=== PATIENT | male | born 1950 | race Caucasian/White ===

== ENCOUNTER → 2017-08-05 | Day surgery (SDC) | payer MEDICARE ==
[~2017-08-05] MED LIST: BUPIVACAINE HCL PF 0.75% 30 ML VIAL ONE; LACTATED RINGER'S 1000 ML INJ 1,000 ML ONE; LIDOCAINE 1.5%/EPINEPHrine 1:200,000 PF SOLN 30 ML AMP ONE; MIDAZOLAM HCL 5 MG/ML VIAL (1 ML) ONE; ONDANSETRON HCL 4 MG/2 ML VIAL IV PUSH ONE; PROPOFOL 200 MG/20 ML AMP IV ONE; ceFAZolin 2 GM PREMIX 50 ML ONE
--- NOTE | 2017-08-05 10:06 | MP ---
cc: ROSANNA OLIVAS DATE OF SURGERY: 08/04/2017 PREOPERATIVE DIAGNOSIS Left shoulder rotator cuff tear. Left shoulder impingement syndrome. Left shoulder labral tear with chondromalacia. POSTOPERATIVE DIAGNOSIS Left shoulder rotator cuff tear. Left shoulder impingement syndrome. Left shoulder labral tear with chondromalacia. PROCEDURE Left shoulder arthroscopic rotator cuff repair. Left shoulder arthroscopic subacromial decompression. Left shoulder arthroscopic extensive debridement of labral tear with chondroplasty. SURGEON Dr. Rosanna Olivas. MEDICAL MASSAGE THERAPIST Rosanna Beverly PA-C. ANESTHESIA General with interscalene block. ESTIMATED BLOOD LOSS Less than 10 cc. COMPLICATIONS None. IMPLANTS USED Arthrex. JUSTIFICATION This patient is a 66-year-old male who injured his left shoulder. He has had persistence of pain in regards to his condition with failure of conservative treatment. Clinical exam as well as MRI confirmed the above-named findings. The patient was counseled as to the risks, benefits and alternatives of the above-named proposed surgical procedure. He did wish to proceed with surgery. PROCEDURE IN DETAIL Written consent was obtained. The patient was identified by name. Interscalene block anesthesia was administered to the left upper extremity by the anesthesiologist. The patient was taken to the operating room and general anesthesia was administered as well as 2 grams of IV Ancef. The patient was carefully turned to a right lateral decubitus position. A lateral arm roll was placed. All bony prominences and pressure points were well-padded. An arthroscopic arm leo was gently applied to the left upper extremity with 10 pounds of traction placed. The left shoulder was prepped and draped using isopropyl alcohol, Hibiclens solution and DuraPrep solution. After a timeout was performed, a standard posterior and anterior glenohumeral arthroscopic portal was established. The glenohumeral joint revealed evidence of extensive labral tearing along the anterior, superior and posterior portions. An arthroscopic shaver was introduced from the anterior portal. Extensive debridement of the labrum was performed to include the anterior 3 o'clock position up to the superior 12 o'clock position and back down the posterior 9 o'clock position. There was evidence of chondromalacia involving the glenohumeral joint and an Arthrex shaver was used to perform a chondroplasty in this region. There was evidence of a high-grade tear of the supraspinatus portion of the rotator cuff tendon which was also debrided. Attention was turned to the subacromial space. There was evidence of impingement with bursitis. An arthroscopic shaver was introduced from the lateral portal. A subacromial decompression was performed. The shaver was used to perform an extensive bursectomy. An arthroscopic bur was used to perform an acromioplasty and the cautery device was used to release the coracoacromial ligament. There was evidence of a high-grade full-thickness tear of the supraspinatus portion of the rotator cuff tendon which was elevated. A bur was used to decorticate the greater tuberosity in preparation for rotator cuff tendon repair. An Arthrex Scorpion device was used to shuttle #2 FiberTape suture in a horizontal mattress pattern as well as #2 FiberLink suture through the torn tendon. The sutures were then placed through the eyelet of an Arthrex 4.75 mm Bio-SwiveLock anchor. The sutures were tensioned and the anchor was inserted in the greater tuberosity. This gave purchase and fixation of insertion of the anchor. At the conclusion of the surgical procedure the arthroscopic portals were closed with 3-0 Prolene suture. Sterile dressings were applied. The patient tolerated the procedure well. No intraoperative complications were noted. Rosanna Beverly, physician asset protection assistant certified, was present during the entire procedure to include patient positioning and the procedure itself. The medical necessity of the physician asset protection assistant was indicated in this case due to the complexity of the procedure. He assisted with appropriate manipulation of the arm and also manipulation of the camera. He assisted with shuttling of sutures and also implantation of suture anchor for the purpose of rotator cuff tendon repair. MD HIMANSHU Dalal/FREDDY /9:35 AM /9:39 AM
== END | disposition home or self-care (01) ==
LOC: ESDC 07:10
PROVIDERS: ATTEND Orthopaedic Surgery Sports Medicine
DX: M75.122 Complete rotator cuff tear or rupture of left shoulder, not specified as traumatic (principal); M75.42 Impingement syndrome of left shoulder; S43.492A Other sprain of left shoulder joint, initial encounter
CPT/HCPCS: 01630; 01991; 29824; 29826; 29827; 64417; C1713; J0690; J2250; J2405; J7120